=== PATIENT | male | born 1980 | race African-American/Black ===

== ENCOUNTER 2016-12-10 10:14 | Emergency (ER) | payer SELFPAY | END 2016-12-10 10:37 | disposition home or self-care (01) | LOC: CFTX 10:14 | DX: S01.81XA Laceration without foreign body of other part of head, initial encounter (principal); F17.210 Nicotine dependence, cigarettes, uncomplicated; X58.XXXA Exposure to other specified factors, initial encounter; Y92.009 Unspecified place in unspecified non-institutional (private) residence as the place of occurrence of the external cause | CPT/HCPCS: 12011; 99283 ==